=== PATIENT | female | born 1940 | race Caucasian/White ===

== ENCOUNTER 2016-11-08 16:30 | Emergency (ER) | payer MEDICARE, MEDICAID ==
[~2016-11-08] VITALS: Ht 167.6 cm; Wt 89.4 kg
[2016-11-08 16:39] VITALS: BP 163/81
[2016-11-08 17:49] LABS: HEMOGLOBIN 12.1 g/dL (11.7-16.4)
[2016-11-08 17:59] LABS: BLOOD UREA NITROGEN 24 mg/dL (7-18)
== END 2016-11-08 18:41 | disposition home or self-care (01) ==
LOC: ED 18:35
DX: L03.113 Cellulitis of right upper limb (principal); M79.641 Pain in right hand; I10 Essential (primary) hypertension
CPT/HCPCS: 29125; 36415; 80048; 82040; 85025; 85651; 86140; 99285